=== PATIENT | male | born 1975 | race African-American/Black ===

== ENCOUNTER 2018-05-27 13:45 | Emergency (ER) | payer OTHER ==
[2018-05-27] MEDS: LIDOCAINE 1% (MDV) 10 ML INJ INJ (15:13)
[2018-05-27] MEDS: ONDANSETRON (ODT) 4 MG TAB ODT (15:16)
[2018-05-27] MEDS: HYDROCODONE/APAP (5/325) TAB PO (15:16)
[2018-05-27] MEDS ORDERED: LIDOCAINE 1% (MPF) 30 ML INJ INJ (15:30)
== END 2018-05-27 16:01 | disposition home or self-care (01) ==
LOC: FTE 13:45
DX: L02.31 Cutaneous abscess of buttock (principal); I10 Essential (primary) hypertension
CPT/HCPCS: 10060; 99284-25

== ENCOUNTER 2018-09-22 15:39 | Emergency (ER) | payer OTHER ==
[2018-09-22] MEDS: HYDROCODONE/APAP (5/325) TAB PO (17:28)
[2018-09-22] MEDS: IBUPROFEN 600 MG TAB PO (17:28)
[2018-09-22] MEDS: LIDOCAINE 1% (MDV) 20 ML INJ SC (17:39)
== END 2018-09-22 18:16 | disposition home or self-care (01) ==
LOC: FTE 15:39
DX: L02.31 Cutaneous abscess of buttock (principal); I10 Essential (primary) hypertension
CPT/HCPCS: 10060; 99283-25